=== PATIENT | female | born 1950 | race Caucasian/White ===

== ENCOUNTER 2016-12-12 10:01 | Emergency (ER) | payer MEDICARE ==
[~2016-12-12] VITALS: Ht 165.1 cm; Wt 68.1 kg
[2016-12-12 10:03] VITALS: BP 138/77
[2016-12-12] MEDS ORDERED: [UNRECOGNIZED DRUG - REMARK] (10:36)
[2016-12-12] MEDS ORDERED: DEXAMETHASONE 4 MG TABLET ONE (10:46)
[2016-12-12] MEDS ORDERED: DEXAMETHASONE 4 MG TABLET PO ONE (11:00)
== END 2016-12-12 11:41 | disposition home or self-care (01) ==
LOC: ED 10:24
DX: J18.1 Lobar pneumonia, unspecified organism (principal); F17.210 Nicotine dependence, cigarettes, uncomplicated; Z90.710 Acquired absence of both cervix and uterus
CPT/HCPCS: 71020; 99284